=== PATIENT | female | born 1940 | race Hispanic/Latino ===

== ENCOUNTER 2017-01-11 12:56 | Outpatient (CLI) | payer MEDICARE, BC ==
--- NOTE | 2017-01-11 14:53 | MRI ---
MRI BRAIN WITHOUT CONTRAST: Date: 01/11/17 HISTORY: M62.81, weakness of right arm. COMPARISON: CT brain dated 11/02/16. FINDINGS: On the diffusion-weighted imaging sequence, there are no abnormal areas of diffusion restriction. Thi s is confirmed on the ADC map. There are prominent perivascular spaces bilaterally. Moderate deep and subcortical white matter micro vascular ischemic changes. 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 On the susceptibility-weighted imaging sequence, no abnormal areas of hemorrhage. Flow-voids are main tained. Mild atrophy. Paranasal sinuses and the mastoids are clear. The marrow signal of the clivus is normal. IMPRESSION: 1. No acute hemorrhage or infarction. 2. Extensive small vessel disease. 3. Mild to moderate atrophy. POS: [facility]
--- NOTE | 2017-01-11 15:35 | MRI ---
MRI CERVICAL SPINE: DATE: 01/11/17. COMPARISON: Comparison is made to previous exam from 10/18/13. FINDINGS: Multiplanar, multisequence noncontrast-enhanced MRI images cervical spine obtained. Images demonstrate extensive posterior laminectomy changes and posterior fusion using pedicle screws fusing the C3, C4, C5, C6, C7, and T1 levels. This posterior decompression has been performed since the previous comparison MRI from 2013. The spinal cord is unremarkable with no evidence of cord mass es or lesions. C1-2, C2-3: Unremarkable. C3-4: Disk desiccation is seen at this level. There is a broad-based disk-osteophyte complex centra lly compressing the thecal sac resulting in minimal but not significant evidence of central stenosis. The neural foramen are patent. C4-5: There is a broad-based disk-osteophyte complex compressing the thecal sac resulting in mild ce ntral and lateral recess stenosis. The neural foramen are patent. C5-6: There is a broad-based disk-osteophyte complex compressing the thoracic spine resulting in mil d to moderate central stenosis. There is minimal anterior cord compression seen due to the anterior osteophyte. The neural foramen are patent. C6-7: Unremarkable. C7-T1: Unremarkable. T1-2: There is disk desiccation. There is a broad-based disk-osteophyte complex seen at the T1-2 an d T2-3 central spinal canal levels. This somewhat compresses the thecal sac. No evidence of T1-[address] compression is seen. There may be some anterior cord compression at the T2-3 central canal level; however, axial images were not obtained to evaluate the extent of the cord compression. IMPRESSION: Interval mid and lower cervical posterior laminectomies and posterior fusion using pedicle screws. T here is some interval development of secondary degenerative changes with disk-osteophyte complexes at T1-2 and T2-3 which were not definitively present on the patient's previous comparison MRI from 2013 . POS: [facility]
== END 2017-01-11 12:57 | disposition home or self-care (01) ==
LOC: MRI 12:56
PROVIDERS: ATTEND Psychiatry & Neurology Neurology
DX: M47.22 Other spondylosis with radiculopathy, cervical region (principal); M62.81 Muscle weakness (generalized); M25.78 Osteophyte, vertebrae; G31.9 Degenerative disease of nervous system, unspecified; G93.89 Other specified disorders of brain; Z98.1 Arthrodesis status
CPT/HCPCS: 70551; 72141

== ENCOUNTER 2017-05-21 01:03 | Inpatient (IN) | payer MEDICARE, BC ==
[2017-05-21] MEDS ORDERED: Acetaminophen 325 MG TAB ONE (02:59)
[2017-05-21] MEDS ORDERED: Mag-Al 1200 mg/1200 mg/30 ML UDCUP ONE (05:43)
[2017-05-21] MEDS ORDERED: Lidocaine Viscous Sol 2% 15 ml UD Cup ONE (05:43)
[2017-05-21 06:12] LABS: Troponin I 0.045 ng/mL (< 0.028)
[2017-05-21 06:29] VITALS: BMI 37.3
[2017-05-21] MEDS ORDERED: Ondansetron ODT 4 MG TAB SL PRN (06:44)
[2017-05-21] MEDS ORDERED: Acetaminophen 325 MG TAB PO PRN ×2 (06:44→07:36)
[2017-05-21] MEDS ORDERED: Ondansetron HCl/PF 4 MG/2 ML Vial IVP PRN ×2 (06:44→07:36)
[2017-05-21] MEDS ORDERED: ISOVUE-370 76%-LOCM 1 ML ONE (07:32)
[2017-05-21] MEDS ORDERED: hydrALAZINE 20 MG/ML VIAL SLOW IVP PRN (07:36)
[2017-05-21] MEDS ORDERED: Artificial Tears 18 DROP/0.9 ML EA EYE PRN (07:36)
[2017-05-21] MEDS ORDERED: Zolpidem Tartrate 5 MG TAB PO PRN ×2 (07:36)
[2017-05-21] MEDS ORDERED: Milk Of Magnesia 30 ML UDCUP PO PRN (07:36)
[2017-05-21] MEDS ORDERED: Ondansetron ODT 4 MG TAB PO PRN (07:36)
[2017-05-21] MEDS ORDERED: Sodium Chloride 0.65% Nasal 44 ML BOT EA NARE PRN (07:36)
[2017-05-21] MEDS ORDERED: Mag-Al 1200 mg/1200 mg/30 ML UDCUP PO PRN (07:36)
[2017-05-21] MEDS ORDERED: Senokot 8.6 MG TAB PO PRN (07:36)
[2017-05-21] MEDS ORDERED: HYDROcodone/Acetaminophen 5/325 mg Tablet PO PRN (07:36)
[2017-05-21] MEDS ORDERED: Nitroglycerin 0.4 MG TAB (25 Tab Bottle) SL PRN (07:36)
[2017-05-21] MEDS ORDERED: Diabetic Tussin 200 MG/10 ML UDCUP PO PRN (07:36)
[2017-05-21] MEDS ORDERED: Chloraseptic Spray 180 ml Bottle PO PRN (07:36)
[2017-05-21] MEDS ORDERED: Loperamide HCl 2 MG CAP PO PRN (07:36)
[2017-05-21] MEDS ORDERED: Loratadine 10 MG TAB PO PRN (07:36)
[2017-05-21] MEDS ORDERED: Eucerin (Mineral Oil/Petrolatum,White) 30 gm Jar TOP PRN (07:36)
[2017-05-21] MEDS ORDERED: PROVENTIL INHALER 6.7 G (200 INHALATIONS) INH PRN (07:39)
[2017-05-21 08:25] LABS: Troponin I 0.031 ng/mL (< 0.028)
--- NOTE | 2017-05-21 08:39 | CT ---
PRELIMINARY REPORT/[facility]/EMERGENCY AFTER HOURS PROCEDURE: EXAM: CT Angiography Chest With Intravenous Contrast CLINICAL HISTORY: 76 years old, female; Signs and symptoms; Cough; Symptoms not specified; Patient HX: 76 yo f. Pt pres ents via ems, transfer for acs R/O, pt presented to ed today with syncope fall yesterday after having dizziness. Work-up today with indeterminate troponin and need for cardiac R/O. Pt with cxr and CT brain negative. 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 Labs with findings of: Bnp-116, k+ 3.1, trop 0 .037. TECHNIQUE: Axial computed tomographic angiography images of the chest with intravenous contrast using pulmonary embolism protocol. CONTRAST: 100 mL of [id number] administered intravenously. COMPARISON: No relevant prior studies available. FINDINGS: Pulmonary arteries: There is a small third segmental pulmonary embolism to the basal medial left lowe r lobe on axial image 66 of series 2. The main pulmonary artery is enlarged to 4 cm diameter. Aorta: There are mild calcifications of the aorta. No thoracic aortic aneurysm. Lungs: Unremarkable. No mass. No consolidation. Pleural space: Unremarkable. No significant effusion. No pneumothorax. Heart: There is mild dilation of the right ventricle compared to the left ventricle with an RV/LV rat io of 36/33. Bones/joints: No acute fracture. No dislocation. Soft tissues: Unremarkable. Lymph nodes: Unremarkable. No enlarged lymph nodes. IMPRESSION: 1. There is a small third segmental pulmonary embolism to the basal medial left lower lobe on axial i mage 66 of series 2. 2. The main pulmonary artery is enlarged to 4 cm diameter. There is mild dilation of the right ventri kena compared to the left ventricle with an RV/LV ratio of 36/33. This is nonspecific but may be secon summer to pulmonary artery hypertension. It is very unlikely that the solitary subsegmental pulmonary e mbolism is causing this finding, but pulmonary artery hypertension can be the result of chronic PE or other restrictive lung disease. This interpretation was based upon the receipt of 513 image(s). THIS REPORT CONTAINS FINDINGS THAT MAY BE CRITICAL TO PATIENT CARE. The findings were verbally commun icated via telephone conference with RACHEL Cedillo at 6:29 AM CDT on 05/21/2017. The findings were acknowledged and understood. Thank you for allowing us to participate in the care of your patient. Dictated and Authenticated by: Yobany Kruger DO 05/21/2017 6:30 AM Central Time ([place] & [place]) FINAL REPORT CT PULMONARY ANGIOGRAM WITH IV CONTRAST AND 3D POSTPROCESSING: Date: 05/21/17 FINDINGS/IMPRESSION: I agree with the preliminary report given by Dr. Yobany Kruger of [facility]. POS: [facility]
[2017-05-21] MEDS ORDERED: Amlodipine 5 MG TAB PO SCH (09:00)
[2017-05-21] MEDS ORDERED: Lisinopril 20 MG TAB PO SCH (09:00)
[2017-05-21] MEDS ORDERED: Hydrochlorothiazide 25 MG TAB PO SCH (09:00)
[2017-05-21 09:09] LABS: Cardiac Risk 4.3 (Less than 4.5)
[2017-05-21] MEDS: Enoxaparin Sodium 100 MG/ML SYRINGE SC SCH ×2 (09:27→21:00)
[2017-05-21] MEDS: Nortriptyline HCl 25 MG CAP PO SCH (09:28)
[2017-05-21] MEDS: Gabapentin 300 MG CAP PO SCH ×2 (09:28→15:55)
[2017-05-21] MEDS: Metamucil PACK PO SCH ×2 (09:28→20:46)
[2017-05-21] MEDS: Potassium Chloride 10 MEQ TAB PO SCH ×2 (09:29→20:46)
[2017-05-21] MEDS: Famotidine 20 MG TAB PO SCH ×2 (09:29→20:46)
[2017-05-21] MEDS: Lorazepam 1 MG TAB PO SCH (09:29)
[2017-05-21] MEDS: Baclofen 10 MG TAB PO SCH ×2 (09:29→15:55)
[2017-05-21] MEDS: Aspirin 325 MG TAB PO SCH (09:29)
--- NOTE | 2017-05-21 12:24 | ULT ---
BILATERAL LOWER EXTREMITY VENOUS DOPPLER: Date: 05/21/17 HISTORY: Pulmonary embolism. COMPARISON: Ultrasound from 2014. TECHNIQUE: Bilateral lower extremity venous Doppler was performed with the linear transducer. The common femoral , femoral, proximal portions of greater saphenous and deep femoral veins, as well as the popliteal an d posterior tibial veins were interrogated. FINDINGS: Normal flow, augmentation, and compression. IMPRESSION: No deep venous thrombosis. POS: [facility]
--- NOTE | 2017-05-21 12:37 | HP ---
PRIMARY CARE PHYSICIAN: Sergio Man M.D. REASON FOR ADMISSION: Pulmonary hypertension, pulmonary embolism. HISTORY OF PRESENT ILLNESS: A 76-year-old female with a history of obesity, hypertension, dyslipidem ia, gastroesophageal reflux disease, who had episode of fall and syncope at home on Wednesday when sh alejandra was going to bathroom. The patient reports that at that time she felt dizzy and whatever she remem bers being on the floor. Since then, she injured her left side of chest as well as right side of the knee and she was hurting there. The patient also noticed that whenever she was taking deep breath, she was hurting on her left side of the chest. She was also having left-sided shoulder blade pain an d right-sided knee pain. Since then, the patient was feeling dizziness, dyspnea on exertion as well as a pleuritic chest pain. She denies any recurrent fall. She denies any easy bleeding from any site. She denies any hematoc hezia or melena. She denies any abdominal pain. She denies any UTI symptoms. She denies any fever or chills. She denies any flu-like illness. When she presented to emergency room, she was tachycardic. She was saturating normal with 2 liter of nasal cannula oxygen. The patient had routine blood test done in the emergency room which showed el evated D-dimer and that is why CT angio was done and CT angio was positive for subsegmental pulmonary embolism on the left side and found with pulmonary hypertension. The patient also had a knee x-ray which showed moderate right knee osteoarthritis without any acute p rocess. CT brain was done which was also negative for any acute process. Initially, this patient wa s admitted as observation status, but after confirmation of diagnosis of pulmonary embolism, we brown ed to inpatient status. The patient was already admitted to her our hospital this morning. PAST MEDICAL HISTORY: Gastroesophageal reflux disease, hypertension, dyslipidemia, asthma, morbid ob esity, nonalcoholic steatohepatitis, chronic venous insufficiency, chronic constipation, chronic low back pain. PAST PSYCHIATRIC HISTORY: Anxiety and depression. PAST SURGICAL HISTORY: Cervical spine surgery, lumbar spine surgery, appendicectomy, hysterectomy, r ight knee surgery, and breast biopsy. SOCIAL HISTORY: The patient is living at home. No history of tobacco, alcohol or illicit drug abuse . FAMILY HISTORY: Mother had history of pancreatic cancer. Daughter was diagnosed with colon cancer a s well. REVIEW OF SYSTEMS: Please see my HPI for pertinent positive and negative. All other review of syste ms reviewed and negative except as mentioned in the HPI. Constitutional: Weight loss or gain, ability to conduct usual activities. Skin: Rash, itching. Eyes: Double vision, pain. ENT/Mouth: Nose bleeding, neck stiffness, pain, tenderness. Cardiovascular: Palpitations, dyspnea on exertion, orthopnea. Respiratory: Shortness of breath, wheezing, cough, hemoptysis, fever or night sweats. Gastrointestinal: Poor appetite, abdominal pain, heartburn, nausea, vomiting, constipation, or diarrhea. Genitourinary: Urgency, frequency, dysuria, nocturia. Musculoskeletal: Pain, swelling. Neurologic/Psychiatric: Anxiety, depression. Allergy/Immunologic: Skin rash, bleeding tendency. ALLERGIES: DARVON. CURRENT HOME MEDICATIONS: Atenolol 50 mg p.o. twice daily, lisinopril 20 mg p.o. twice daily, Ativan 0.5 mg q.6 hourly p.r.n., Zocor 10 mg p.o. at bedtime, gabapentin 100 mg 3 times daily, baclofen 10 mg 3 times daily, omeprazole 10 mg p.o. daily, aspirin 81 mg p.o. daily, Metamucil one tablet p.o. da renee. EMERGENCY ROOM COURSE: In the emergency room, the patient was given GI cocktail, normal saline 1 lit er and Tylenol 650 mg. PHYSICAL EXAMINATION: VITAL SIGNS: On arrival, blood pressure 130/89, pulse 137, respiratory rate 20, temperature 97.9, sa turation 95% on 2 liter oxygen, weight 97.6 kilograms. GENERAL: The patient is currently alert, awake, no obvious acute distress. HEAD: Normocephalic, atraumatic. EYES: Pupils round, reactive to light. Extraocular muscle intact. ENT: Oropharynx within normal limits. Moist mucous membranes. No oral lesion, no pharyngeal erythe ma, no exudate. NECK: Supple, no JVD, no thyromegaly, no carotid bruit, no jugular venous distention. LUNGS: Clear to auscultation without any rhonchi or rales. CARDIAC: S1, S2 appears regular. No murmur, no gallop, no rub. ABDOMEN: Obesity present. Bowel sounds present, nontender, nondistended. No organomegaly, no mass, no suprapubic tenderness. BACK: Unremarkable, no CVA tenderness. EXTREMITIES: Upper extremity: passive movements of all joints are all joints are normal. Lower ext remity: Right knee is swollen and tender compared to left knee. Otherwise, no calf tenderness. Goo d distal pulsation. SKIN: No skin rash other than multiple old bruits noted on the skin. HEMATOLOGICAL: No lymphadenopathy. PSYCHIATRIC: Normal affect. SIGNIFICANT LABORATORY DATA: CBC: WBC 11.5, hemoglobin 15.6, platelet 325. CBC: WBC 11.5, hemoglo bin 15.6, platelet 325. D-dimer 0.94. BMP: Sodium 140, potassium 3.1, chloride 103, carbon dioxide 17, anion gap 23, BUN 14, creatinine 0.84, glucose 137, calcium 9.3, magnesium 1.8. LFT: AST 27, A LT 26, alkaline phosphatase 83, albumin 4.0. BNP 116.0. CK-MB 1.5, troponin 0.037, then 0.045, and then 0.031. Triglyceride 136, cholesterol 162, LDL 97, HDL 38. CT angiography positive for third segmental pulmonary embolism on the left lower lobe, main pulmonary artery enlarged with the dilatation of right ventricle, moderate right knee osteoarthritis on the kn ee x-ray on the right side. CT brain is showing no acute intracranial process on CT brain. Hip x-ra y negative for any acute process. Chest x-ray negative for any acute process. Forearm x-ray negativ e for any fracture or dislocation. ASSESSMENT AND PLAN: 1. Acute/chronic pulmonary embolism, subsegmental, left lower lobe. This patient had dizziness spel l on Wednesday and she has pleuritic chest pain since then. She is tachycardic and relatively hypoxi c. I am suspecting predominantly this patient might have acute pulmonary embolism. At this point, w e will change to inpatient status and will treat her with Lovenox 1 mg per kg subcutaneously twice da . We will consider upon discharge newer anticoagulant therapy for 6-month therapy. We will check ultrasound of the lower extremity to rule out DVT. We will check stool for guaiac to rule out any o ccult bleeding. We will monitor H&H, platelets and creatinine while in hospital. We will monitor on telemetry floor. 2. Elevated troponin, likely due to demand ischemia from problem #1 from right ventricular strain as well as right ventricular overload pattern from pulmonary embolism. We will try to get echocardiogr aphy at this point to assess the right and left ventricle. 3. Hypokalemia. We will replace potassium with potassium chloride 40 mEq p.o. one time dose. 4. Macrocytosis. We will check homocysteine level and start folic acid, vitamin B12 therapy while i n the hospital. 5. Elevated BNP. We will do echocardiography to assess ejection fraction and other structural abnor mality likely related with a right ventricular overload and strain pattern. 6. Asthma. We will continue ProAir HFA 2 puffs q.6 hourly p.r.n. 7. Hypertension. We will continue amlodipine 2.5 mg p.o. daily along with lisinopril 20 mg p.o. b.i .d. and atenolol 50 mg p.o. b.i.d. 8. Peripheral neuropathy and chronic low back pain. Continue gabapentin 600 mg t.i.d. 9. Anxiety and depression. Continue lorazepam 1 mg p.o. daily, nortriptyline 25 mg p.o. daily. 10. Gastroesophageal reflux disease. Continue Pepcid 20 mg p.o. b.i.d. 11. Dyslipidemia. Lipid profile checked and it is within normal limits. Continue Zocor 20 mg p.o. at bedtime. 12. Deep venous thrombosis prophylaxis. The patient is already on full dose of Lovenox therapy. 13. Gastrointestinal prophylaxis, Pepcid 20 mg p.o. b.i.d. 14. Code status: The patient is FULL CODE. The patient does not have any surrogate decision maker. Disposition plan based on clinical course. We are expecting patient's stay in hospital more than 2 m idnights. Plan of care discussed with the patient in detail.
[2017-05-21] MEDS ORDERED: Nitroglycerin 2% Ointment 1 INCH/1 GM Packet TOP SCH (14:00)
[2017-05-21] MEDS ORDERED: Sodium Chloride 0.9% 500 ML IV SCH ×2 (15:45→16:00)
--- NOTE | 2017-05-21 17:53 | RAD ---
AP VIEW OF THE CHEST 05/21/17 INDICATION: Wheezing. FINDINGS: There is some mild subsegmental atelectasis seen within the right mid lung. No confluent air space op acity or pleural effusion is evident. There is mild cardiomegaly. Vascular calcification in the aorti c arch is stable. No acute osseous abnormality is evident. IMPRESSION: Stable areas of subsegmental atelectasis involving the right mid lung when compared to recent CT of t he thorax dated 05/21/17. POS: [facility]
[2017-05-21 17:55] LABS: ALT (SGPT) 19 U/L (8-55); AST (SGOT) 19 U/L (5-34); Albumin 3.5 g/dL (3.4-4.8); Alkaline Phosphatase 76 U/L (40-150); Anion Gap 13 mmol/L (10-20); BUN (Urea Nitrogen) 21 mg/dL (9.8-20.1); Bilirubin, Total 0.5 mg/dL (0.2-1.2); Calc. Creatinine Clearance 40 mL/min (70-130); Calcium 8.5 mg/dL (7.8-10.44); Carbon Dioxide 24 mmol/L (23-31); Chloride 104 mmol/L (98-107); Estimated GFR-MDRD 27; Globulin 2.5 g/dL (2.4-3.5); Glucose 101 mg/dL (83-110); Lactic Acid 1.7 mmol/L (0.5-2.2); Potassium 4.2 mmol/L (3.5-5.1); Sodium 137 mmol/L (136-145)
[2017-05-21 18:22] LABS: #Basophils 0.1 thou/uL (0.0-0.2); #Eosinphils 0.2 thou/uL (0.0-0.7); #Lymphocytes 1.3 thou/uL (1.20-3.40); #Monocytes 1.1 thou/uL (0.11-0.59); #Neutrophils 7.3 thou/uL (1.40-6.50); %Basophils 0.8 % (0.0-1.0); %Eosinophils 1.8 % (0.0-10.0); %Lymphocytes 13.1 % (21.0-51.0); %Monocytes 11.4 % (0.0-10.0); %Neutrophils 72.9 % (42.0-75.0); Anisocytosis SLIGHT = 6-15 cells (100X) (0-5/hpf); Hemoglobin 14.1 g/dL (12.0-16.0); MDiff Complete? YES; Mean Corpuscular HGB CONC 31.5 g/dL (32.0-36.0); Mean Corpuscular Hemoglobin 33.8 pg (27.0-31.0); Mean Platelet Volume 6.9 fL (7.4-10.4); PLT Morphology Comment Appears Adequate; Platelet Count 282 thou/uL (130-400); RBC Distribution Width 12.7 % (11.5-14.5); Red Blood Cell (RBC) Count 4.18 mill/uL (4.20-5.40)
[2017-05-21] MEDS: Budesonide 0.5 MG/2 ML NEB INH SCH (19:26)
[2017-05-21] MEDS: Atorvastatin Calcium 10 MG TAB PO SCH (20:46)
[2017-05-22 05:20] LABS: Hemoglobin 13.2 g/dL (12.0-16.0); Platelet Count 258 thou/uL (130-400)
[2017-05-22 05:29] LABS: INR-International Normal Ratio 1.2; Prothrombin Time 15.3 SEC (12.0-14.7)
[2017-05-22] MEDS: Budesonide 0.5 MG/2 ML NEB INH SCH ×2 (07:11→18:38)
[2017-05-22] MEDS ORDERED: Sodium Chloride 0.9% 1,000 ML IV SCH (07:45)
[2017-05-22] MEDS: Aspirin 325 MG TAB PO SCH (08:05)
[2017-05-22] MEDS: Potassium Chloride 10 MEQ TAB PO SCH ×2 (08:06→21:49)
[2017-05-22] MEDS: Folic Acid 1 MG TAB PO SCH (08:06)
[2017-05-22] MEDS: Famotidine 20 MG TAB PO SCH ×2 (08:06→21:49)
[2017-05-22] MEDS: Cyanocobalamin (Vitamin B-12) 1,000 MCG TAB PO SCH (08:06)
[2017-05-22] MEDS: Lorazepam 1 MG TAB PO SCH (08:06)
[2017-05-22] MEDS: Enoxaparin Sodium 100 MG/ML SYRINGE SC SCH (08:06)
[2017-05-22] MEDS: Sodium Chloride 0.9% 1,000 ML IV SCH ×2 (08:08→21:50)
[2017-05-22] MEDS: Metamucil PACK PO SCH ×2 (09:37→21:49)
[2017-05-22] MEDS: Nortriptyline HCl 25 MG CAP PO SCH (09:37)
[2017-05-22] MEDS ORDERED: Lactated Ringer's 1,000 ML IV SCH (16:00)
--- NOTE | 2017-05-22 16:31 | CON ---
DATE OF CONSULTATION: 05/22/2017 SERVICE: Pulmonary Medicine. REASON FOR CONSULTATION: IMCU patient. HISTORY OF PRESENT ILLNESS: The patient is a 76-year-old female. I see her in the outpatie nt setting for obstructive sleep apnea. The last time I saw her was in October. At that time, she was cool, calm and collected. I have seen her on multiple occasions throughout the years and she reynolds s never had this type of behavior before. Currently, she has had a hard time staying focused and sta sebastian on task. She has pressured speech and jumps from idea to idea. Apparently, she is having some confusion about the timeline. She is upset that her had not been to visit her, though they a re , and he some time ago. She denies any current fevers, chills, nausea or vomi ting. She was ultimately brought to the Emergency Department on 05/21/2017. Initially, she was plac ed in observation. She is being evaluated for a very small pulmonary embolism. Ultimately, she was transitioned from the observation unit to the inpatient setting because of a syncopal episode and mar ginal blood pressures. She cannot really provide me with any elements of the history. PAST MEDICAL HISTORY: 1. Obstructive sleep apnea, severe. 2. Gastroesophageal reflux disease. 3. Hypertension. 4. Dyslipidemia. 5. Asthma. 6. Morbid obesity. 7. Nonalcoholic steatohepatitis. 8. Chronic constipation. 9. Chronic low back pain. PAST SURGICAL HISTORY: 1. C-spine surgery. 2. Lumbar spine surgery. 3. Appendectomy. 4. Hysterectomy. 5. Right knee surgery. 6. Right breast biopsy. SOCIAL HISTORY: Negative for alcohol, tobacco or illicit drug use. She indicates that she is not on any weight loss medications currently. She has no exposure to chemicals, asbestos or tuberculosis. FAMILY HISTORY: Noncontributory. ALLERGIES: DARVON. MEDICATIONS: List of her inpatient medications were reviewed. No specific updates were made at this time. REVIEW OF SYSTEMS: General, head, ears, eyes, nose, throat, cardiovascular, respiratory, GI, , mus culoskeletal, neurologic and skin is negative except as mentioned in the HPI. PHYSICAL EXAMINATION: VITAL SIGNS: Afebrile, pulse 133, blood pressure 99/55, respirations 20 and saturation 97% on room a ir. GENERAL: The patient is awake and alert, in no apparent distress. LUNGS: Decent air entry. There is no prolonged expiratory phase. Rhonchi are present, but cleared with cough. HEART: Normal rate and regular. ABDOMEN: Soft, nontender and nondistended. Bowel sounds are positive. MUSCULOSKELETAL: No cyanosis or clubbing. There is no pitting in the bilateral lower extremities. NEUROLOGIC: Grossly nonfocal. LABORATORY DATA: WBC 10.0, hemoglobin 14.1 and platelets 282,000. INR 1.2, D-dimer 0.94. Creatinin e 2.32 and up trending from 1.18. Lactate 1.7, cardiac enzymes are negative x1. Homocysteine is nor mal. Liver function studies are unremarkable and BNP is only 62. Liver function studies are unremar kable. IMAGING DATA: 1. CTA of the chest demonstrates an extraordinarily small pulmonary embolism in the left lower subse gmental region. The left pulmonary artery is enlarged a little bit. Minimal dilation of the right v entricle was present. 2. Ultrasound of the bilateral lower extremities demonstrates no evidence of DVT. 3. Chest x-ray demonstrates no acute cardiopulmonary abnormality. ASSESSMENT: 1. Acute pulmonary embolism. 2. Sinus tachycardia. 3. Obstructive sleep apnea. PLAN: The patient will continue using her CPAP equipment as previously directed. Pulmonary function studies were previously unremarkable for any significant chronic obstructive disease process. As reed barnes, I will provide her only with p.r.n. nebulized medications. This flight of idea, and pressured sp eech is not her. My suspicion is she has thyroid storm, is manic with possible psychotic features, o r is under the influence of medications. As such, we will do a urine drug screen, and check a TSH. If medical things are checked out, we may need to consider inpatient psychiatry opinion. Pulmonary C ritical Care will continue to follow while she remains in this location. She does appear to be a lit tle dehydrated, so I will provide her with some IV fluids.
[2017-05-22] MEDS: Rivaroxaban 15 MG TAB PO SCH (16:50)
[2017-05-22 17:51] LABS: Amphetamine Not Detected (NotDetected); Barbiturates Screen Not Detected (NotDetected); Benzodiazepine Screen Detected (NotDetected); Cocaine Metabolite Screen Not Detected (NotDetected); Medtox Control Line Valid? VALID (VALID); Medtox Reader # READER 4; Methadone Not Detected (NotDetected); Methamphetamine Not Detected (NotDetected); Opiate Screen Detected (NotDetected); Oxycodone Screen Not Detected (NotDetected); Phencyclidine (PCP) Not Detected (NotDetected); THC/Cannabinoid Screen Not Detected (NotDetected); Tricyclic Screen Detected (NotDetected)
--- NOTE | 2017-05-22 19:36 | ULT ---
RENAL ULTRASOUND: 05/22/17 INDICATION: Acute kidney injury. COMPARISON: None. FINDINGS: The right kidney measures 10.5 x 4.9 x 5.3 cm. Left kidney measures 10.4 x 5.3 x 5.7 cm. Prevoid blad keren volume is 192.8 mL. IMPRESSION: No focal renal lesion or hydronephrosis. POS: [facility]
--- NOTE | 2017-05-22 21:04 | PDOC.PN ---
- Subjective Encounter Start Date: 05/22/17 Encounter Start Time: 14:20 -: old records requested/rev Pt seen and examined, chart reviewed in its entirety, this is my first visit with this patient. presented for SOB, Chest discomfort. PT found to have PE, admitted. overnight , tachycardic, hypotensive, sent to IMCU. Pt remains tachy, though BP better. IV fluids started I spent 45 minutes with the patient and her daughters going over the history. Pt very tremulous and anxious, but recalled events leading up to admission over the last week very specifically. Family reports increasing short term memory issues, occasional confusion, and a kinetic tremor L>R that has been steadily increasing. She is not normally anxious appearing like now I have discussed his case with Dr Carter and he said she is definitely not as her baseline and appears to be extremely anxious, psychotic, or intoxicated on something 10 point RO sperfmred and neg for all systems except as per HPI - Objective MAR Reviewed: Yes Vital Signs & Weight: Vital Signs (12 hours) Temp Pulse Resp BP BP Pulse Ox 05/22/17 20:00 98.9 F 125 H 19 104/67 96 05/22/17 18:38 127 H 16 95 05/22/17 18:08 129 H 20 127/75 93 L 05/22/17 16:00 131 H 81/65 L 05/22/17 15:09 98.5 F 133 H 20 99/55 L 97 05/22/17 13:36 130 H 20 115/68 96 05/22/17 13:13 120 H 20 05/22/17 12:11 97 05/22/17 11:38 99.1 F 122 H 20 90/70 94 L 05/22/17 10:00 118 H 20 107/71 95 05/22/17 09:42 124 H 110/69 95 05/22/17 09:06 98.1 F 108 H 21 H 94 L Weight Weight 213 lb I&O: 05/21/17 05/22/17 05/23/17 06:59 06:59 06:59 Intake Total 541 3835 Output Total 100 275 Balance 441 3560 Result Diagrams: 05/22/17 03:36 05/23/17 Unknown Radiology Reviewed by me: Yes EKG Reviewed by me: Yes Phys Exam - Physical Examination very anxious and tremulous HEENT: PERRLA, moist MMs, sclera anicteric, oral pharynx no lesions bilateral pseudophakia Neck: no nodes, no JVD, supple, full ROM Respiratory: no rales, no rhonchi, clear to auscultation bilateral expiratory high pitched wheezes present tachy, regular in 120s to 130s Gastrointestinal: soft, non-tender, no distention, positive bowel sounds Musculoskeletal: pulses present, edema present Neurological: non-focal, normal sensation, moves all 4 limbs Lymphatic: no nodes Psychiatric: A&O x 3 Skin: no rash, normal turgor, cap refill <2 seconds Dx/Plan - Plan cont current plan of care, plan discussed w/ family, PT/OT, respiratory therapy , incentive spirometry, out of bed/ambulate * .
[2017-05-22] MEDS: Atorvastatin Calcium 10 MG TAB PO SCH (21:49)
[2017-05-23] MEDS: Budesonide 0.5 MG/2 ML NEB INH SCH ×2 (06:34→18:30)
[2017-05-23] MEDS: Sodium Chloride 0.9% 1,000 ML IV SCH (06:38)
[2017-05-23 07:24] LABS: INR-International Normal Ratio 1.6; Prothrombin Time 19.1 SEC (12.0-14.7)
[2017-05-23] MEDS: Nortriptyline HCl 25 MG CAP PO SCH ×2 (07:50→11:41)
[2017-05-23] MEDS: Lorazepam 1 MG TAB PO SCH (07:50)
[2017-05-23] MEDS: Potassium Chloride 10 MEQ TAB PO SCH ×3 (07:50→20:24)
[2017-05-23] MEDS: Folic Acid 1 MG TAB PO SCH ×2 (07:50→11:41)
[2017-05-23] MEDS: Cyanocobalamin (Vitamin B-12) 1,000 MCG TAB PO SCH ×2 (07:50→11:41)
[2017-05-23] MEDS: Rivaroxaban 15 MG TAB PO SCH ×3 (07:50→16:50)
[2017-05-23] MEDS: Aspirin 325 MG TAB PO SCH ×2 (07:50→11:40)
[2017-05-23] MEDS: Famotidine 20 MG TAB PO SCH ×3 (07:50→20:24)
[2017-05-23] MEDS: Metamucil PACK PO SCH ×2 (07:51→20:25)
[2017-05-23 08:00] LABS: ALT (SGPT) 19 U/L (8-55); AST (SGOT) 23 U/L (5-34); Albumin 3.3 g/dL (3.4-4.8); Alkaline Phosphatase 62 U/L (40-150); Anion Gap 10 mmol/L (10-20); BUN (Urea Nitrogen) 28 mg/dL (9.8-20.1); Bilirubin, Total 0.2 mg/dL (0.2-1.2); Calc. Creatinine Clearance 81 mL/min (70-130); Calcium 8.2 mg/dL (7.8-10.44); Carbon Dioxide 26 mmol/L (23-31); Chloride 107 mmol/L (98-107); Estimated GFR-MDRD 60; Globulin 2.2 g/dL (2.4-3.5); Glucose 118 mg/dL (83-110); Magnesium 2.2 mg/dL (1.6-2.6); Potassium 4.6 mmol/L (3.5-5.1); Protein, Total 5.5 g/dL (6.0-8.3); Sodium 138 mmol/L (136-145)
[2017-05-23 08:14] LABS: Hemoglobin 11.8 g/dL (12.0-16.0); Mean Corpuscular HGB CONC 32.6 g/dL (32.0-36.0); Mean Platelet Volume 7.1 fL (7.4-10.4); Platelet Count 289 thou/uL (130-400); RBC Distribution Width 12.3 % (11.5-14.5); Red Blood Cell (RBC) Count 3.48 mill/uL (4.20-5.40); White Blood Cell (WBC) Count 18.9 thou/uL (4.8-10.8)
[2017-05-23 08:15] LABS: Band 4 % (5-11); Lymphocytes 6 % (21-51); MDiff Complete? YES; Monocytes 3 % (0-10); Neutrophil 87 % (42-75); PLT Morphology Comment Appears Adequate; RBC Morphology Normal
[2017-05-23] MEDS ORDERED: Lorazepam 2 MG/ML VIAL SLOW IVP PRN (08:58)
[2017-05-23] MEDS ORDERED: Morphine 4 MG/ML VIAL SLOW IVP PRN (11:30)
--- NOTE | 2017-05-23 13:24 | PDOC.PN ---
- Subjective Encounter Start Date: 05/23/17 Encounter Start Time: 11:00 Pt appears more calm today, no family at the bedside. chart re-reviewed. pt on nursing home daily ativan, and has had now in 6 days. On multiple dose daily tramadol and hadnt had any pain meds wednesday through wednesday, wednesday had a single dose of morphine in ER, then none since. i think shes withdrawing. No N/v, no CP or SON,HR down a little, no other acute events overnight. some confusion earlier this morning at shift change, jose alberto rnow 10 point ROS performed and neg for all systems except as per HPI - Objective MAR Reviewed: Yes Vital Signs & Weight: Vital Signs (12 hours) Temp Pulse Resp BP Pulse Ox 05/23/17 11:08 99.1 F 112 H 22 H 121/84 95 05/23/17 07:51 98.3 F 109 H 16 96 05/23/17 07:47 98.3 F 109 H 16 138/78 96 05/23/17 07:41 98.5 F 104 H 19 112/65 98 05/23/17 06:34 120 H 16 05/23/17 04:00 97.5 F L 101 H 19 131/76 90 L Weight Weight 215 lb I&O: 05/22/17 05/23/17 05/24/17 06:59 06:59 06:59 Intake Total 541 5084 320 Output Total 100 675 Balance 441 4409 320 Result Diagrams: 05/23/17 Unknown 05/23/17 Unknown Radiology Reviewed by me: Yes EKG Reviewed by me: Yes Phys Exam - Physical Examination Constitutional: NAD anxious HEENT: PERRLA, moist MMs, sclera anicteric, oral pharynx no lesions Neck: no nodes, no JVD, supple, full ROM Respiratory: no wheezing, no rales, no rhonchi, clear to auscultation bilateral Cardiovascular: no significant murmur, no rub tachy, regular Gastrointestinal: soft, non-tender, no distention, positive bowel sounds Musculoskeletal: pulses present, edema present Neurological: non-focal, normal sensation, moves all 4 limbs Lymphatic: no nodes Psychiatric: normal affect, A&O x 3 Skin: no rash, normal turgor, cap refill <2 seconds Dx/Plan - Plan cont current plan of care, PT/OT, speech therapy, out of bed/ambulate * . bedside swallow, if okay, can restartmeds, NPO awaiting ST eval PRN ativana nd morphine IV for now PRN elevated ASE score. discussed with nursing
--- NOTE | 2017-05-23 14:28 | PRG ---
DATE OF SERVICE: 05/23/2017 SERVICE: Pulmonary Medicine. INTERVAL HISTORY: The patient is doing fine from a cardiovascular and respiratory standpoint. She i s much back to her usual state of health. She denies any fevers, chills, nausea or vomiting. She no longer demonstrates a flight of ideas. Otherwise, there has been no change to her condition. Her a cute kidney injury has resolved. PHYSICAL EXAMINATION: VITAL SIGNS: Afebrile currently with a T-max of 99.1. Pulse 112, blood pressure 121/84, respiration s 22, saturation 95% on 1 liter nasal cannula. GENERAL: The patient is awake and alert, in no apparent distress. LUNGS: Decent air entry. Dependent crackles are minimal. HEART: Tachycardic. Regular. ABDOMEN: Soft, nontender, nondistended. Bowel sounds are positive. MUSCULOSKELETAL: No cyanosis or clubbing. There is no pitting in the bilateral lower extremities. NEUROLOGIC: Grossly nonfocal. LABORATORY DATA: Urine drug screen is positive for opiates, tricyclic antidepressants, and benzodiaz epines. WBC 18.9, hemoglobin 11.8 and down trending gently. Platelets 289,000. Band count is 4%. INR 1.6 and up trending. Basic metabolic profile, liver function studies have completely resolved. Creatinine is normal at 0.92. TSH was previously unremarkable. Stool occult blood was negative. IMAGIN. Renal ultrasound demonstrates no evidence of hydronephrosis. 2. Echocardiogram is essentially unremarkable. ASSESSMENT: 1. Acute pulmonary embolism. 2. Sinus tachycardia. 3. Obstructive sleep apnea. 4. Metabolic encephalopathy. 5. Acute kidney injury, resolved. 6. Dehydration. PLAN: The patient is returning to her usual state of health. At this point, she can be transitioned out of the IMCU to the regular medical floor. Pulmonary will continue to follow up there for the ti me being. I would like for her to use her home CPAP unit if it is available for her family to bring to her.
[2017-05-23] MEDS: Sodium Chloride 0.45% 1,000 ML IV SCH ×2 (16:27→16:49)
[2017-05-23] MEDS: Atorvastatin Calcium 10 MG TAB PO SCH (20:24)
[2017-05-24] MEDS: Sodium Chloride 0.45% 1,000 ML IV SCH (04:19)
[2017-05-24 05:55] LABS: #Eosinphils 0.1 thou/uL (0.0-0.7); #Lymphocytes 2.1 thou/uL (1.20-3.40); #Monocytes 0.9 thou/uL (0.11-0.59); #Neutrophils 8.8 thou/uL (1.40-6.50); %Basophils 0.1 % (0.0-1.0); %Eosinophils 0.5 % (0.0-10.0); %Lymphocytes 17.4 % (21.0-51.0); %Monocytes 7.6 % (0.0-10.0); %Neutrophils 74.4 % (42.0-75.0); Hemoglobin 12.4 g/dL (12.0-16.0); INR-International Normal Ratio 1.4; Mean Corpuscular HGB CONC 32.9 g/dL (32.0-36.0); Mean Corpuscular Hemoglobin 34.4 pg (27.0-31.0); Mean Platelet Volume 6.9 fL (7.4-10.4); Platelet Count 288 thou/uL (130-400); Prothrombin Time 17.9 SEC (12.0-14.7); RBC Distribution Width 12.4 % (11.5-14.5); Red Blood Cell (RBC) Count 3.61 mill/uL (4.20-5.40); White Blood Cell (WBC) Count 11.8 thou/uL (4.8-10.8)
[2017-05-24 06:22] LABS: Anion Gap 10 mmol/L (10-20); BUN (Urea Nitrogen) 17 mg/dL (9.8-20.1); Calc. Creatinine Clearance 102 mL/min (70-130); Calcium 8.6 mg/dL (7.8-10.44); Carbon Dioxide 25 mmol/L (23-31); Chloride 109 mmol/L (98-107); Estimated GFR-MDRD 74; Glucose 86 mg/dL (83-110); Magnesium 2.2 mg/dL (1.6-2.6); Potassium 4.5 mmol/L (3.5-5.1); Sodium 139 mmol/L (136-145)
[2017-05-24] MEDS: Budesonide 0.5 MG/2 ML NEB INH SCH ×2 (07:44→19:14)
[2017-05-24] MEDS: Rivaroxaban 15 MG TAB PO SCH ×2 (08:38→16:48)
[2017-05-24] MEDS: Aspirin 325 MG TAB PO SCH (08:38)
[2017-05-24] MEDS: Cyanocobalamin (Vitamin B-12) 1,000 MCG TAB PO SCH (08:39)
[2017-05-24] MEDS: Lorazepam 1 MG TAB PO SCH (08:39)
[2017-05-24] MEDS: Nortriptyline HCl 25 MG CAP PO SCH (08:40)
[2017-05-24] MEDS: Folic Acid 1 MG TAB PO SCH (08:40)
[2017-05-24] MEDS: Potassium Chloride 10 MEQ TAB PO SCH ×2 (08:41→20:38)
[2017-05-24] MEDS: Metamucil PACK PO SCH ×2 (08:42→20:38)
[2017-05-24] MEDS: Famotidine 20 MG TAB PO SCH ×2 (08:44→20:39)
--- NOTE | 2017-05-24 09:04 | PDOC.PN ---
- Subjective Encounter Start Date: 05/24/17 Encounter Start Time: 12:40 Subjective: Patient feels very weak and anxious. Dizzy with movement. No chest -: pain. Arthritis pain better with meds. - Objective MAR Reviewed: Yes Vital Signs & Weight: Vital Signs (12 hours) Temp Pulse Resp BP Pulse Ox 05/24/17 08:13 98.3 F 110 H 18 160/72 H 98 05/24/17 07:44 111 H 18 95 05/24/17 04:00 98 F 110 H 18 178/77 H 98 Weight Weight 223 lb 8 oz I&O: 05/23/17 05/24/17 05/25/17 06:59 06:59 06:59 Intake Total 5084 2447 Output Total 675 1100 Balance 4409 1347 Result Diagrams: 05/24/17 05:20 05/24/17 05:20 Phys Exam - Physical Examination Constitutional: NAD HEENT: moist MMs Respiratory: no wheezing, no rales, no rhonchi Cardiovascular: no significant murmur tachycardic Gastrointestinal: soft, non-tender, positive bowel sounds Neurological: non-focal, moves all 4 limbs Psychiatric: A&O x 3 Deviation from normal: anxious, tearful Dx/Plan (1) Pulmonary embolism Code(s): I26.99 - OTHER PULMONARY EMBOLISM WITHOUT ACUTE COR PULMONALE Status : Acute (2) Pulmonary hypertension Code(s): I27.20 - PULMONARY HYPERTENSION, UNSPECIFIED Status: Acute (3) Hypoxia Code(s): R09.02 - HYPOXEMIA Status: Acute Comment: Will check room air sats and order home O2 if needed (4) GLO on CPAP Code(s): G47.33 - OBSTRUCTIVE SLEEP APNEA (ADULT) (PEDIATRIC); Z99.89 - DEPENDENCE ON OTHER ENABLING MACHINES AND DEVICES Status: Chronic Comment: on home CPAP (5) GERD (gastroesophageal reflux disease) Code(s): K21.9 - GASTRO-ESOPHAGEAL REFLUX DISEASE WITHOUT ESOPHAGITIS Status: Chronic (6) HTN (hypertension) Code(s): I10 - ESSENTIAL (PRIMARY) HYPERTENSION Status: Chronic Comment: uncontrolled, resume home Atenolol and Isosorbide. (7) KELLY (nonalcoholic steatohepatitis) Code(s): K75.81 - NONALCOHOLIC STEATOHEPATITIS (KELLY) Status: Chronic (8) Chronic low back pain Code(s): M54.5 - LOW BACK PAIN; G89.29 - OTHER CHRONIC PAIN Status: Chronic (9) Tachycardia Code(s): R00.0 - TACHYCARDIA, UNSPECIFIED Status: Acute Comment: sinus, secondary to PE vs. Anxiety. Check EKG. Restart home Atenolol. - Plan cont current plan of care, PT/OT PT/OT eval, may need SNF/rehab. * . - Discharge Day Encounter end time: 12:50
[2017-05-24] MEDS ORDERED: Nitroglycerin 0.4 MG TAB (25 Tab Bottle) SL PRN (09:07)
[2017-05-24] MEDS: traMADol HCl 50 MG TAB PO PRN ×2 (09:55→15:40)
[2017-05-24] MEDS ORDERED: Atenolol 50 MG TAB PO SCH (13:30)
[2017-05-24] MEDS: Atorvastatin Calcium 10 MG TAB PO SCH (20:38)
[2017-05-25 05:52] LABS: #Basophils 0.2 thou/uL (0.0-0.2); #Eosinphils 0.2 thou/uL (0.0-0.7); #Lymphocytes 1.8 thou/uL (1.20-3.40); #Monocytes 0.9 thou/uL (0.11-0.59); #Neutrophils 6.4 thou/uL (1.40-6.50); %Basophils 1.9 % (0.0-1.0); %Eosinophils 2.1 % (0.0-10.0); %Lymphocytes 19.1 % (21.0-51.0); %Monocytes 9.9 % (0.0-10.0); Hemoglobin 12.7 g/dL (12.0-16.0); Mean Corpuscular HGB CONC 32.5 g/dL (32.0-36.0); Mean Corpuscular Hemoglobin 34.1 pg (27.0-31.0); Mean Platelet Volume 6.7 fL (7.4-10.4); Platelet Count 308 thou/uL (130-400); RBC Distribution Width 12.2 % (11.5-14.5); Red Blood Cell (RBC) Count 3.72 mill/uL (4.20-5.40); White Blood Cell (WBC) Count 9.5 thou/uL (4.8-10.8)
[2017-05-25] MEDS: Budesonide 0.5 MG/2 ML NEB INH SCH (06:10)
[2017-05-25 06:15] LABS: Anion Gap 11 mmol/L (10-20); BUN (Urea Nitrogen) 12 mg/dL (9.8-20.1); Calc. Creatinine Clearance 105 mL/min (70-130); Carbon Dioxide 26 mmol/L (23-31); Chloride 105 mmol/L (98-107); Estimated GFR-MDRD 77; Glucose 85 mg/dL (83-110); Potassium 4.4 mmol/L (3.5-5.1); Sodium 138 mmol/L (136-145)
--- NOTE | 2017-05-25 07:49 | PRG ---
DATE OF SERVICE: 05/25/2017 SERVICE: Pulmonary Medicine INTERVAL HISTORY: The patient is doing fine from cardiovascular and respiratory standpoint. She den ies any current fevers, chills, nausea or vomiting. Today, she looks a little bit more plethoric and lethargic. There were no events overnight. She is not complaining of any shortness of breath. She has a little bit of cough, but it is clearing. PHYSICAL EXAMINATION: VITAL SIGNS: Afebrile, pulse 75, blood pressure 172/75, respirations 16, saturation 94% on room air. GENERAL: The patient is awake, alert, in no apparent distress. LUNGS: Decent air entry. Dependent crackles are minimal. HEART: Normal rate, regular. ABDOMEN: Soft, nontender, nondistended. Bowel sounds are positive. MUSCULOSKELETAL: No cyanosis or clubbing. There is 2+ pitting in the right lower extremity. Trace pitting is present in the left lower extremity. GENITOURINARY: No Lucio. NEUROLOGIC: Grossly nonfocal. LABORATORY DATA: WBC 11.8 and down trending. Hemoglobin 12.4, platelets 288,000. Neutrophil count is 74% and normalized. Basic metabolic profile, and magnesium fall within the normal limits. ASSESSMENT: 1. Acute pulmonary embolism. 2. Sinus tachycardia, resolved. 3. Obstructive sleep apnea. 4. Metabolic encephalopathy, resolved. 5. Dehydration, resolved. PLAN: I will discontinue the IV fluids. The patient has a little constipation. As such, we will sc hedule some medications to loosen her stools up. Pulmonary will continue to follow for the time emmanuel aguirre. She will use her CPAP at night. She is getting close to being ready for discharge from the [facility] though she seems to be little sad today.
--- NOTE | 2017-05-25 08:53 | PDOC.PN ---
- Subjective Encounter Start Date: 05/25/17 Encounter Start Time: 13:50 Subjective: Weak, no chest pain or SOB. - Objective MAR Reviewed: Yes Vital Signs & Weight: Vital Signs (12 hours) Temp Pulse Resp BP Pulse Ox 05/25/17 07:26 97.8 F 82 16 145/76 H 95 05/25/17 06:15 75 16 94 L 05/25/17 06:10 75 16 94 L 05/25/17 03:27 98.1 F 75 20 172/75 H 95 05/24/17 23:10 98.3 F 76 16 147/67 H 93 L Weight Weight 217 lb I&O: 05/24/17 05/25/17 05/26/17 06:59 06:59 06:59 Intake Total 2447 1175 Output Total 1100 Balance 1347 1175 Result Diagrams: 05/25/17 05:39 05/25/17 05:39 Phys Exam - Physical Examination Constitutional: NAD HEENT: moist MMs Respiratory: no wheezing, no rales, no rhonchi, clear to auscultation bilateral Cardiovascular: RRR, no significant murmur Gastrointestinal: soft, positive bowel sounds Neurological: non-focal Psychiatric: normal affect, A&O x 3 Dx/Plan (1) Pulmonary embolism Code(s): I26.99 - OTHER PULMONARY EMBOLISM WITHOUT ACUTE COR PULMONALE Status : Acute Qualifiers: Chronicity: acute Acute cor pulmonale presence: without acute cor pulmonale (2) Pulmonary hypertension Code(s): I27.20 - PULMONARY HYPERTENSION, UNSPECIFIED Status: Acute (3) Hypoxia Code(s): R09.02 - HYPOXEMIA Status: Resolved Comment: Saturating well on Room air (4) GLO on CPAP Code(s): G47.33 - OBSTRUCTIVE SLEEP APNEA (ADULT) (PEDIATRIC); Z99.89 - DEPENDENCE ON OTHER ENABLING MACHINES AND DEVICES Status: Chronic Comment: on home CPAP (5) GERD (gastroesophageal reflux disease) Code(s): K21.9 - GASTRO-ESOPHAGEAL REFLUX DISEASE WITHOUT ESOPHAGITIS Status: Chronic (6) HTN (hypertension) Code(s): I10 - ESSENTIAL (PRIMARY) HYPERTENSION Status: Chronic Comment: uncontrolled, resume home Atenolol and Isosorbide. (7) KELLY (nonalcoholic steatohepatitis) Code(s): K75.81 - NONALCOHOLIC STEATOHEPATITIS (KELLY) Status: Chronic (8) Chronic low back pain Code(s): M54.5 - LOW BACK PAIN; G89.29 - OTHER CHRONIC PAIN Status: Chronic (9) Tachycardia Code(s): R00.0 - TACHYCARDIA, UNSPECIFIED Status: Resolved Comment: resolved with home Atenolol (10) Depression Code(s): F32.9 - MAJOR DEPRESSIVE DISORDER, SINGLE EPISODE, UNSPECIFIED Status : Acute Comment: Home Prozac restarted - Plan cont current plan of care, PT/OT Rehab eval pending, discharge when accepted * . - Discharge Day Encounter end time: 14:00
[2017-05-25] MEDS ORDERED: Senokot S 8.6-50 MG TAB PO SCH (09:00)
[2017-05-25] MEDS ORDERED: Polyethylene Glycol 3350 17 GM Packet PO SCH (09:00)
[2017-05-25] MEDS ORDERED: FLUoxetine HCl 20 MG CAP PO SCH (09:00)
[2017-05-25] MEDS ORDERED: Atenolol 50 MG TAB PO SCH (09:00)
[2017-05-25] MEDS: Rivaroxaban 15 MG TAB PO SCH ×2 (09:22→16:43)
[2017-05-25] MEDS: Aspirin 325 MG TAB PO SCH (09:22)
[2017-05-25] MEDS: Famotidine 20 MG TAB PO SCH (09:23)
[2017-05-25] MEDS: Cyanocobalamin (Vitamin B-12) 1,000 MCG TAB PO SCH (09:23)
[2017-05-25] MEDS: Folic Acid 1 MG TAB PO SCH (09:24)
[2017-05-25] MEDS: Nortriptyline HCl 25 MG CAP PO SCH (09:25)
[2017-05-25] MEDS: Lorazepam 1 MG TAB PO SCH (09:25)
[2017-05-25] MEDS: Potassium Chloride 10 MEQ TAB PO SCH (09:25)
[2017-05-25] MEDS: Metamucil PACK PO SCH (09:27)
[2017-05-25] MEDS: traMADol HCl 50 MG TAB PO PRN ×2 (09:29→16:43)
[2017-05-25] MEDS ORDERED: Furosemide 20 MG/2 ML VIAL SLOW IVP SCH (10:15)
--- NOTE | 2017-05-25 10:15 | PRG ---
DATE OF SERVICE: 05/25/2017 SERVICE: Pulmonary Medicine. INTERVAL HISTORY: The patient is doing a little bit better today. Her mentation has improved. Her mood has actually changed a little bit. She has a little bit of extra energy today. Otherwise, ther e has been no interval change to her condition. PHYSICAL EXAMINATION: VITAL SIGNS: Afebrile, pulse 82, blood pressure 145/76, respirations 16, saturation 95% on room air. GENERAL: The patient is awake and alert. She is in no apparent distress. LUNGS: Decent air entry bilaterally with no prolonged expiratory phase, wheezing, rhonchi or crackle s. HEART: Normal rate, regular. ABDOMEN: Soft, nontender, and nondistended. Bowel sounds are positive. MUSCULOSKELETAL: No cyanosis or clubbing. There is 2+ pitting in the bilateral lower extremities. NEUROLOGIC: Grossly nonfocal. LABORATORY DATA: WBC 9.5, hemoglobin 12.7, platelets 308,000. Neutrophil count is now normal. Basi c metabolic profile is completely unremarkable. ASSESSMENT: 1. Acute pulmonary embolism. 2. Sinus tachycardia, resolved. 3. Obstructive sleep apnea. 4. Metabolic encephalopathy, resolved. 5. Dehydration, resolved. DISCUSSION AND PLAN: The patient is a little volume up at this point. As such, I will provide her o ne dose of Lasix. At this point she has no further requirements for inpatient Pulmonary or Critical Care opinion, and I will sign off. Please call with additional questions or concerns moving forward.
[2017-05-25 17:08] VITALS: BP 141/65; TEMP 98.2
--- NOTE | 2017-05-26 03:44 | DIS ---
PRIMARY CARE PHYSICIAN: Dr. Man. REASON FOR ADMISSION: Pulmonary embolism. DIAGNOSES AT DISCHARGE: 1. Pulmonary embolism. 2. Pulmonary hypertension. 3. Obstructive sleep apnea on CPAP. 4. Gastroesophageal reflux disease. 5. Hypertension. 6. Nonalcoholic steatohepatitis. 7. Chronic low back pain. 8. Sinus tachycardia. 9. Depression. PROCEDURES: 1. CT of the chest with and without contrast showing a small third segmental pulmonary embolism of t he base of the left lower lobe along with enlargement of main pulmonary artery consistent with pulmon gino hypertension. 2. Lower extremity ultrasound showing no evidence for DVT done in both lower extremities. 3. Renal ultrasound showing no focal renal lesion or hydronephrosis. 4. Echocardiogram showing an ejection fraction of 60% to 65%, otherwise normal. CONSULTATIONS: Pulmonology, Dr. Carter. SUMMARY OF HOSPITAL COURSE: This is a 76-year-old female with a history of obesity, hypertension, dy slipidemia, and gastroesophageal reflux disease, who had an episode of syncope and fall at home, had dizziness prior to the episode. She also had left-sided chest pain when taking a deep breath. [facility], she was noted to be tachycardic and had an elevated D-dimer. CT angio was done with above results. She also had elevated troponin, likely due to demand ischemia . Patient was placed in the hospital. She was started on Lovenox. Pulmonology, Dr. Carter was con sulted and she was transitioned over to Xarelto. Patient did well in her hospitalization. She was a ble to be eventually weaned off oxygen. Sinus tachycardia that resolved with institution of her home beta ry. The patient's echocardiogram with the above results. She was noted to be weak and reynolds d trouble ambulating, and so she is being transitioned to inpatient rehabilitation. DISCHARGE MANAGEMENT: Discharged to inpatient rehabilitation at [facility]. ACTIVITIES: As tolerated. DIET: Healthy heart diet. THERAPY: Physical and occupational therapy. Follow up with Dr. Man in 2 to 3 weeks after rehab s nicolás. DISCHARGE MEDICATIONS: 1. Albuterol 2 puffs every 6 hours as needed for coughing, wheezing, shortness of breath. 2. Atenolol 50 mg twice a day. 3. Fluoxetine 20 mg daily. 4. DuoNeb every 6 hours as needed. 5. Isosorbide mononitrate 30 mg daily. 6. Loratadine 10 mg daily as needed. 7. Lorazepam 1 mg daily. 8. Nitroglycerin as needed. 9. Nortriptyline 25 mg p.o. daily. 10. Zofran q.6 hours as needed. 11. Polyethylene glycol 17 grams p.o. daily. 12. Potassium chloride 10 mEq p.o. twice a day. 13. Metamucil 0.4 grams p.o. twice a day. 14. Xarelto 15 mg twice a day. 15. Senokot-S 2 tablets twice a day. 16. Simvastatin 20 mg at night. 17. Tramadol 1-2 tablets every 6 hours as needed for pain. 18. Omeprazole 40 mg daily.
== END 2017-05-25 17:10 | DRG 175 ==
LOC: ERS 01:03 → 2SW 04:00 → OBSVTOIN 08:42 → IMCU/EMU 17:54 → ONC 05-23 20:45
PROVIDERS: ADMIT Family Medicine; ATTEND Family Medicine
DX: I26.99 Other pulmonary embolism without acute cor pulmonale (principal); G93.41 Metabolic encephalopathy; I24.8 Other forms of acute ischemic heart disease; G62.9 Polyneuropathy, unspecified; I27.20 Pulmonary hypertension, unspecified; E66.01 Morbid (severe) obesity due to excess calories; Z99.81 Dependence on supplemental oxygen; Z68.39 Body mass index [BMI] 39.0-39.9, adult; I10 Essential (primary) hypertension; E78.5 Hyperlipidemia, unspecified; K21.9 Gastro-esophageal reflux disease without esophagitis; E87.6 Hypokalemia; J45.909 Unspecified asthma, uncomplicated; M54.5 Low back pain; F41.9 Anxiety disorder, unspecified; F32.9 Major depressive disorder, single episode, unspecified; G47.33 Obstructive sleep apnea (adult) (pediatric); E86.0 Dehydration; K75.81 Nonalcoholic steatohepatitis (NASH)
CPT/HCPCS: 36415; 71045; 71275; 76770; 80048; 80053; 80061; 80306; 82274; 82553; 82565; 83090; 83605; 83735; 83880; 84443; 84484; 85014; 85018; 85025; 85049; 85379; 85610; 93005; 93010; 93306; 93970; 94640; 96360; 96361; A4216; G8996-GN-CH; G8997-GN-CH; J1650; J1940; J2405; J7620; J7626